=== PATIENT | female | born 1930 | race Caucasian/White ===

== ENCOUNTER → 2017-07-12 | Outpatient (CLI) | payer MEDICARE, BC ==
--- NOTE | 2017-07-12 15:04 | RADIOLOGY REPORT (SQ) ---
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 TECHNIQUE: Two radiographic images acquired of the left tibia and fibula to include the knee and ank le in at least one projection. LIMITATIONS: Artifact from Jacques bandage over the left lower leg FINDINGS: MINERALIZATION: Osteopenic BONES: Old healed distal 3rd fibular diaphysis fracture. Old screws for ORIF distal tibial fracture. No aggressive demineralization or periosteal new bone worrisome for osteomyelitis. 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 IMPRESSION: No aggressive bony demineralization or periosteal new bone worrisome for osteomyelitis. Old distal fibular diaphysis fracture without hardware. Old anterior distal tibial metaphysis fractu re with hardware TECHNICAL DOCUMENTATION: JOB ID: [id number] [employer]- All Rights Reserved
--- NOTE | 2017-07-12 15:06 | RADIOLOGY REPORT (SQ) ---
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 TECHNIQUE: AP, lateral, and oblique radiographic images acquired of the left ankle. LIMITATIONS: Artifact from a Jacques bandage over the left lower leg FINDINGS: MINERALIZATION: Osteopenia BONES: Old healed left distal fibular diaphysis fracture. Old healed distal anterior tibial metaphys is fracture with hardware. No lucency around the hardware worrisome for loosening or infection. No aggressive bony demineralization or periosteal new bone to suggest osteomyelitis. JOINTS: Tibiotalar joint space narrowing without effusion SOFT TISSUES: Diffuse calcifications throughout the subcutaneous fat, left lower leg OTHER: No other significant finding. IMPRESSION: No acute fracture. No aggressive bony demineralization or periosteal new bone worrisome for osteomyelitis. TECHNICAL DOCUMENTATION: JOB ID: [id number] [employer]- All Rights Reserved
== END ==
LOC: RAD 13:04
PROVIDERS: ATTEND Surgery
DX: L97.222 Non-pressure chronic ulcer of left calf with fat layer exposed (principal)